=== PATIENT | female | born 1960 | race Two or more races ===

== ENCOUNTER 2018-05-15 08:57 | Day surgery (SDC) | payer OTHER ==
[~2018-05-15] VITALS: Ht 167.6 cm; Wt 63.5 kg
[~2018-05-15 08:57] MED LIST: ALEVE220 MG; CHOL10002; ESTROVEN MENOPAUSE; FOLI1; HYDSUL200; TURMERIC500 M2; UBID10; VITAMIN B-121000 MCG; XATMEP2.5 MG/1 M
== END 2018-05-15 11:28 | disposition home or self-care (01) ==
LOC: ORSCSDS 08:57
PROVIDERS: Ophthalmology
PROC: 08RK3JZ Replacement of Left Lens with Synthetic Substitute, Percutaneous Approach (ICD-10-PCS; principal; 2018-05-15 10:30)
DX: H25.12 Age-related nuclear cataract, left eye (principal)
CPT/HCPCS: J2001; J2250; J3010; J3301; J7040; V2632